=== PATIENT | male | born 1935 | race Caucasian/White ===

== ENCOUNTER 2017-10-27 08:14 | Emergency (ER) | payer MEDICARE, OTHER ==
--- NOTE | 2017-10-27 09:02 | EDM.PDOC ---
ED HPI GENERAL MEDICAL PROBLEM - General Chief Complaint: ENT Problem Stated Complaint: NOSE BLEED Time Seen by Provider: 10/27/17 08:44 Source of Information: Reports: Patient, Family History Limitations: Reports: No Limitations - History of Present Illness INITIAL COMMENTS - FREE TEXT/NARRATIVE: The patient presents with a nosebleed from the right nare. He woke up with it at 3am and it has been coming and going. He is currently on coumadin. He just had his INR checked yesterday. He has never had trouble with nosebleeds before. He has no fever, chills, cough, chest pain, shortness of breath, abdominal pain, nausea and vomiting. He denies trauma to his nose. Onset: Sudden Duration: Hour(s): Severity: Moderate Improves with: Reports: None Worsens with: Reports: None Associated Symptoms: Reports: No Other Symptoms - Related Data Allergies Allergy/AdvReac Type Severity Reaction Status Date / Time No Known Allergies Allergy Verified 10/27/17 08:38 Home Meds: Home Meds Ascorbic Acid [Vitamin C] 500 mg PO QAM 12/02/13 [History] Latanoprost [Xalatan 0.005% Ophth Soln] 1 drop EYERT BEDTIME 12/02/13 [History] Metoprolol Succinate [Toprol XL 50mg] 50 mg PO QPM 12/02/13 [History] Multivitamin [Multi-Vitamin Daily] 1 tab PO QAM 12/02/13 [History] Pravastatin [Pravachol] 20 mg PO QPM 12/02/13 [History] metFORMIN [Glucophage] 1,000 mg PO BID 12/02/13 [History] Aspirin [Ecotrin] 81 mg PO QAM 12/03/13 [History] Fish Oil/Borage/Flax/Om3,6,9#1 [[place] 3-6-9 Complex Softgel] 1 cap PO QAM [History] Folic Acid 1 tab PO QPM 12/03/13 [History] Losartan Potassium [Cozaar] 1 tab PO QAM 12/03/13 [History] Lutein/Minerals/Vit A,C & E [Ocuvite] 1 tab PO QPM 12/03/13 [History] Vitamin E 1 cap PO MOWEFR 12/03/13 [History] Warfarin [Coumadin] 1 mg PO ASDIRECTED 10/27/17 [History] Past Medical History HEENT History: Reports: Impaired Vision Cardiovascular History: Reports: High Cholesterol, Hypertension - Past Surgical History GI Surgical History: Reports: Appendectomy Musculoskeletal Surgical History: Reports: Shoulder Surgery Social & Family History - Tobacco Use Smoking Status *Q: Never Smoker - Caffeine Use Caffeine Use: Reports: None - Recreational Drug Use Recreational Drug Use: No ED ROS ENT - Review of Systems Review Of Systems: See Below Constitutional: Reports: No Symptoms HEENT: Reports: Nosebleed Respiratory: Reports: No Symptoms Cardiovascular: Reports: No Symptoms Endocrine: Reports: No Symptoms GI/Abdominal: Reports: No Symptoms : Reports: No Symptoms Musculoskeletal: Reports: No Symptoms ED EXAM, ENT - Physical Exam Exam: See Below Exam Limited By: No Limitations General Appearance: Alert, No Apparent Distress Ears: Normal External Exam Nose: Active Bleeding (Mild from the septum of the right nare) Head: Atraumatic, Normocephalic Neck: Normal Inspection ED ENT PROCEDURES - Epistaxis Procedure Indication: Epistaxis Recent anticoagulants/antiplatlets: Yes Uncontrolled HTN: No Recent septal/nasal surgery: No Site of bleeding: Right Nare, Anterior Clearing of clots: Patient Blew Nose Ice pack to area: No Chemical cautery: Silver Nitrate Topical Complications: No Course - Vital Signs Last Recorded V/S: Last Vital Signs Temp 97.4 F 10/27/17 08:35 Pulse 75 10/27/17 08:35 Resp 12 10/27/17 08:35 BP 161/95 H 10/27/17 08:35 Pulse Ox 100 10/27/17 08:35 - Re-Assessments/Exams Free Text/Narrative Re-Assessment/Exam: 10/27/17 09:57 He had a little more bleeding so I cauterized some more. I put bacitracin in each nare. I will discharge him home. Departure - Departure Time of Disposition: 10:00 Disposition: Home, Self-Care 01 Condition: Good Clinical Impression: Epistaxis - Discharge Information Referrals: Landry Oneill MD [Primary Care Provider] - Forms: ED Department Discharge Additional Instructions: Take your medication as prescribed. Use vasaline or antibiotic ointment in each nostril to help keep them moist for the next 3 days. Please return if you are worse.
[2017-10-27] MEDS ORDERED: Losartan 25 MG Tab PO ONE (10:29)
== END 2017-10-27 12:40 | disposition home or self-care (01) ==
LOC: JD.ED 08:14
DX: R04.0 Epistaxis (principal); I10 Essential (primary) hypertension; E78.00 Pure hypercholesterolemia, unspecified; Z79.82 Long term (current) use of aspirin; Z79.899 Other long term (current) drug therapy; Z79.01 Long term (current) use of anticoagulants
CPT/HCPCS: 30903; 99283; A9270; 30901

== ENCOUNTER 2020-03-19 16:27 | Emergency (ER) | payer MEDICARE, OTHER ==
--- NOTE | 2020-03-19 17:07 | EDM.PDOC ---
ED HPI GENERAL MEDICAL PROBLEM - General Chief Complaint: Laceration Stated Complaint: HEAD LAC Time Seen by Provider: 03/19/20 16:43 Source of Information: Reports: Patient, RN Notes Reviewed History Limitations: Reports: No Limitations - History of Present Illness INITIAL COMMENTS - FREE TEXT/NARRATIVE: Patient is an 85-year-old male who presents to the ED for the evaluation of his head laceration. Patient notes that around 11 AM this morning, he was putting things away in his garage, when he ended up striking the crown of his head on a shelf, he states he does this every year, but this was the first time he had a hard enough to cause a laceration. He notes he is on Coumadin it did bleed quite a bit initially, but has stopped bleeding at this time. He did not have any loss of consciousness, no headache, blurred vision double vision, no dizziness or lightheadedness. He did have his pro time checked yesterday, and it was 1.8. This laceration is roughly 3 cm in length, and fairly linear. There is not a lot of bleeding noted around the wound. Patient denies any other sick-like symptoms, fever/chills, cough/shortness of breath, nausea/vomiting/diarrhea. Primary care provider is Dr. Oneill. Patient notes he is up-to-date on his vaccinations. - Related Data Allergies Allergy/AdvReac Type Severity Reaction Status Date / Time No Known Allergies Allergy Verified 10/27/17 08:38 Home Meds: Home Meds Ascorbic Acid [Vitamin C] 500 mg PO QAM 12/02/13 [History] Latanoprost [Xalatan 0.005% Ophth Soln] 1 drop EYERT BEDTIME 12/02/13 [History] Metoprolol Succinate [Toprol XL 50mg] 50 mg PO QPM 12/02/13 [History] Multivitamin [Multi-Vitamin Daily] 1 tab PO QAM 12/02/13 [History] Pravastatin [Pravachol] 20 mg PO QPM 12/02/13 [History] metFORMIN [Glucophage] 1,000 mg PO BID 12/02/13 [History] Aspirin [Ecotrin EC] 81 mg PO QAM 12/03/13 [History] Fish Oil/Borage/Flax/Om3,6,9 1 [[place] 3-6-9 Complex Softgel] 1 cap PO QAM 12/03/13 [History] Folic Acid 1 tab PO QPM 12/03/13 [History] Losartan Potassium [Cozaar] 1 tab PO QAM 12/03/13 [History] Lutein/Minerals/Vit A,C & E [Ocuvite] 1 tab PO QPM 12/03/13 [History] Vitamin E 1 cap PO MOWEFR 12/03/13 [History] Warfarin [Coumadin] 1 mg PO ASDIRECTED 10/27/17 [History] cephALEXin [Keflex] 500 mg PO Q8H #21 cap 10/27/17 [Rx] Past Medical History HEENT History: Reports: Impaired Vision Cardiovascular History: Reports: High Cholesterol, Hypertension - Past Surgical History GI Surgical History: Reports: Appendectomy Musculoskeletal Surgical History: Reports: Shoulder Surgery Social & Family History - Tobacco Use Tobacco Use Status *Q: Never Tobacco User - Caffeine Use Caffeine Use: Reports: Coffee, Soda, Tea - Recreational Drug Use Recreational Drug Use: No ED ROS GENERAL - Review of Systems Review Of Systems: Comprehensive ROS is negative, except as noted in HPI. ED EXAM, SKIN/RASH Exam: See Below Exam Limited By: No Limitations General Appearance: Alert, WD/WN, No Apparent Distress Eye Exam: Bilateral Eye: EOMI, Normal Inspection, PERRL Ears: Normal External Exam, Normal TMs Nose: Normal Inspection, Normal Mucosa, No Blood Head: Normocephalic Neck: Normal Inspection, Supple, Non-Tender, Full Range of Motion Respiratory/Chest: No Respiratory Distress, Lungs Clear, Normal Breath Sounds, No Accessory Muscle Use, Chest Non-Tender Cardiovascular: Normal Peripheral Pulses, Regular Rate, Rhythm, No Murmur Peripheral Pulses: 2+: Radial (L), Radial (R) Neurological: Alert, Oriented, Normal Cognition, No Motor/Sensory Deficits Psychiatric: Normal Affect, Normal Mood Skin: Warm, Dry, Normal Color, No Rash, Wound/Incision (3 cm curvilinear laceration to the patient's crown of his head, bleeding is controlled.) ED SKIN PROCEDURES - Laceration/Wound Repair [place] Head Appearance: Superficial, Clean Distal NVT: Neuro & Vascular Intact, No Tendon Injury Skin Prep: Chlorhexidine (Hibiciens), Saline Exploration/Debridement/Repair: Wound Explored, In a Bloodless Field, Explored to Base, No Foreign Material Found Closed with: Dermabond Lac/Wound length In cm: 3 Sterile Dressing Applied: Nurse Tetanus Status Addressed: Yes Complications: No Course - Vital Signs Last Recorded V/S: Last Vital Signs Temp 97.0 F 03/19/20 16:41 Pulse 63 03/19/20 16:41 Resp 20 03/19/20 16:41 BP 154/74 H 03/19/20 16:41 Pulse Ox 98 03/19/20 16:41 Departure - Departure Time of Disposition: 17:06 Disposition: Home, Self-Care 01 Condition: Good Clinical Impression: Laceration of head Qualifiers: Encounter type: initial encounter Location of open wound of head: scalp Foreign body presence: without foreign body Qualified Code(s): S01.01XA - Laceration without foreign body of scalp, initial encounter - Discharge Information *PRESCRIPTION DRUG MONITORING PROGRAM REVIEWED*: No *COPY OF PRESCRIPTION DRUG MONITORING REPORT IN PATIENT RAMAN: No Instructions: Sutures, [place], or Adhesive Wound Closure, [id number] Referrals: Landry Oneill MD [Primary Care Provider] - Additional Instructions: You have been evaluated in the ED for your laceration. Your wound was repaired with Dermabond, which is a's medical grade skin adhesive. This will stay in place for the next few days, and will wear itself off. This should provide enough time for the wound to heal appropriately. Please keep this area clean and dry, you may cleanse with regular soap and water. No vigorous scrubbing. Please try to avoid submerging the affected area in water for prolonged periods of time until the sutures are removed. Watch out for signs of infection like increased redness, swelling, pain at the laceration site, or if you should develop any fevers or chills. Please return to ED if your symptoms change or worsen. Sepsis Event Note (ED) - Evaluation Sepsis Screening Result: No Definite Risk - Focused Exam Vital Signs: Vital Signs Temp Pulse Resp BP Pulse Ox 03/19/20 16:41 97.0 F 63 20 154/74 H 98
== END 2020-03-19 17:15 | disposition home or self-care (01) ==
LOC: JD.ED 16:27
DX: S01.01XA Laceration without foreign body of scalp, initial encounter (principal); E78.00 Pure hypercholesterolemia, unspecified; I10 Essential (primary) hypertension; Z79.82 Long term (current) use of aspirin; Z79.84 Long term (current) use of oral hypoglycemic drugs; Z79.899 Other long term (current) drug therapy; W22.8XXA Striking against or struck by other objects, initial encounter
CPT/HCPCS: 12002; 99282; 99282-25

== ENCOUNTER 2020-12-13 11:05 | Emergency (ER) | payer MEDICARE, OTHER ==
[2020-12-13] MEDS ORDERED: Diphtheria,Pertussis(Acell),Tetanus Vaccine 0.5 ML Syringe IM ONE (11:32)
[2020-12-13] MEDS ORDERED: Amoxicillin/Clavulanate K 875-125 MG Tab PO ONE (12:53)
--- NOTE | 2020-12-13 13:09 | EDM.PDOC ---
ED HPI GENERAL MEDICAL PROBLEM - General Chief Complaint: Laceration Stated Complaint: LT PINKY LAC Time Seen by Provider: 12/13/20 11:27 Source of Information: Reports: Patient, RN Notes Reviewed History Limitations: Reports: No Limitations - History of Present Illness INITIAL COMMENTS - FREE TEXT/NARRATIVE: Patient is an 85-year-old male presenting to the emergency department with complaints of laceration to his left fifth finger. Reports on Sunday that he drug his hand across sawblade causing the injury. He has been applying pressure dressing and washing it at home. He is not sure when his last tetanus vaccination was. Patient is on Coumadin. He last had his INR checked a little bit less than a month ago and had his dose of Coumadin decreased. - Related Data Allergies Allergy/AdvReac Type Severity Reaction Status Date / Time No Known Allergies Allergy Verified 12/13/20 11:25 Home Meds: Home Meds Latanoprost [Xalatan 0.005% Ophth Soln] 1 drop EYERT BEDTIME 12/02/13 [History] Metoprolol Succinate [Toprol XL 50mg] 50 mg PO DAILY 12/02/13 [History] metFORMIN [Glucophage] 500 mg PO BID 12/02/13 [History] Aspirin [Ecotrin EC] 81 mg PO QAM 12/03/13 [History] Folic Acid 400 mg PO QPM 12/03/13 [History] Losartan Potassium [Cozaar] 1 tab PO QAM 12/03/13 [History] Lutein/Minerals/Vit A,C & E [Ocuvite] 1 tab PO BID 12/03/13 [History] Warfarin [Coumadin] 5 mg PO ASDIRECTED 10/27/17 [History] Alogliptin Benzoate [Alogliptin] 12.5 mg PO BEDTIME 12/13/20 [History] Amiodarone [Cordarone] 200 mg PO DAILY 12/13/20 [History] Amoxicillin/Clavulanate K [Augmentin 875-125 MG] 1 tab PO BID 5 Days #9 tablet 12/13/20 [Rx] Levothyroxine 25 mcg PO ACBREAKFAST 12/13/20 [History] Multivit-Min/Folic/Vit K/Lycop [Men's Multivitamin Tablet] 1 each PO BID 12/13/20 [History] Rosuvastatin Calcium 20 mg PO BEDTIME 12/13/20 [History] glipiZIDE [Glucotrol] 5 mg PO DAILY 12/13/20 [History] Past Medical History HEENT History: Reports: Impaired Vision Cardiovascular History: Reports: High Cholesterol, Hypertension, Pacemaker Endocrine/Metabolic History: Reports: Diabetes, Type II Hematologic History: Reports: Anticoagulation Therapy - Past Surgical History Cardiovascular Surgical History: Reports: Pacer GI Surgical History: Reports: Appendectomy Musculoskeletal Surgical History: Reports: Shoulder Surgery Social & Family History - Tobacco Use Tobacco Use Status *Q: Never Tobacco User - Caffeine Use Caffeine Use: Reports: None - Recreational Drug Use Recreational Drug Use: No ED ROS GENERAL - Review of Systems Review Of Systems: Comprehensive ROS is negative, except as noted in HPI. ED EXAM, SKIN/RASH Exam: See Below Exam Limited By: No Limitations General Appearance: Alert, WD/WN, No Apparent Distress Respiratory/Chest: No Respiratory Distress, Lungs Clear, Normal Breath Sounds, No Accessory Muscle Use, Chest Non-Tender Cardiovascular: Normal Peripheral Pulses, Regular Rate, Rhythm, No Edema, No Gallop, No JVD, No Murmur, No Rub Extremities: Other (3 cm a 1 cm skin avulsion of the volar aspect of the left fifth finger. Moderate amount of active bleeding. No redness, warmth, or swelling. Patient has full range of motion to flexion and extension.) Neurological: Alert, Oriented, CN II-XII Intact, Normal Cognition, Normal Gait, Normal Reflexes, No Motor/Sensory Deficits Psychiatric: Normal Affect, Normal Mood Course - Vital Signs Last Recorded V/S: Last Vital Signs Temp 96.8 F L 12/13/20 11:22 Pulse 61 12/13/20 11:22 Resp 16 12/13/20 11:22 BP 163/90 H 12/13/20 11:22 Pulse Ox 98 12/13/20 11:22 - Orders/Labs/Meds Orders: Active Orders 24 hr Category Date Time Status Vaccines to be Administered [RC] PER UNIT ROUTINE Care 12/13/20 11:32 Active Fingers Fifth Digit Lt F4 [CR] Stat Exams 12/13/20 11:40 Taken Labs: Laboratory Tests 12/13/20 12/13/20 12/13/20 Range/Units 11:45 11:45 11:45 WBC 9.19 H (4.23-9.07) K/mm3 RBC 4.20 L (4.63-6.08) M/mm3 Hgb 13.2 L (13.7-17.5) gm/dl Hct 40.8 (40.1-51.0) % MCV 97.1 H (79.0-92.2) fl MCH 31.4 (25.7-32.2) pg MCHC 32.4 (32.2-35.5) g/dl RDW Std Deviation 46.9 H (35.1-43.9) fL Plt Count 171 (163-337) K/mm3 MPV 11.6 (9.4-12.3) fl Neut % (Auto) 64.4 (34.0-67.9) % Lymph % (Auto) 18.1 L (21.8-53.1) % [place] % (Auto) 14.5 H (5.3-12.2) % Eos % (Auto) 2.3 (0.8-7.0) Baso % (Auto) 0.5 (0.1-1.2) % Neut # (Auto) 5.92 H (1.78-5.38) K/mm3 Lymph # (Auto) 1.66 (1.32-3.57) K/mm3 [place] # (Auto) 1.33 H (0.30-0.82) K/mm3 Eos # (Auto) 0.21 (0.04-0.54) K/mm3 Baso # (Auto) 0.05 (0.01-0.08) K/mm3 PT 23.5 H (9.7-12.0) SECONDS INR 2.23 Sodium 147 H (136-145) mEq/L Potassium 4.5 (3.5-5.1) mEq/L Chloride 110 H (98-107) mEq/L Carbon Dioxide 29 (21-32) mEq/L Anion Gap 12.5 (5-15) BUN 24 H (7-18) mg/dL Creatinine 1.6 H (0.7-1.3) mg/dL Est Cr Clr Drug Dosing 37.26 mL/min Estimated GFR (MDRD) 41 (>60) mL/min BUN/Creatinine Ratio 15.0 (14-18) Glucose 125 H (70-99) mg/dL Calcium 9.0 (8.5-10.1) mg/dL Total Bilirubin 0.5 (0.2-1.0) mg/dL AST 36 (15-37) U/L ALT 46 (16-63) U/L Alkaline Phosphatase 46 (46-116) U/L Total Protein 6.8 (6.4-8.2) g/dl Albumin 3.6 (3.4-5.0) g/dl Globulin 3.2 gm/dL Albumin/Globulin Ratio 1.1 (1-2) Meds: Medications Discontinued Medications Generic Name Dose Route Start Last Admin Trade Name Ángel PRN Reason Stop Dose Admin Diphtheria/Tetanus/Acell Pertussis 0.5 ml 12/13/20 11:32 12/13/20 11:44 Diphtheria,Pertussis(Acell),Tetanus Vaccine 0.5 Ml Syringe IM 12/13/20 11:33 0.5 ml .ONCE ONE Administration - Re-Assessments/Exams Free Text/Narrative Re-Assessment/Exam: Is an 85-year-old male presenting to the emergency part with complaints of laceration to his left fifth finger. On exam, he does have an extensive 3 cm x 1 cm skin avulsion to the volar aspect of the left fifth finger. There is a moderate amount of bleeding as patient is on Coumadin. He is diabetic. He does not know when his last tetanus vaccination was. Patient is holding pressure on the area with sterile gauze. I have ordered Tdap and an x-ray of the left fifth finger. I will be in [facility] as patient may need grafting due to the extent of the injury. 12/13/20 12:51 X-ray of the left fifth ring shows no bony abnormalities. [facility] They will be contacting him with an appointment time. Quick clot dressing was applied to the finger and it was wrapped in gauze and [place]. Bleeding has stopped. Patient will be started on Augmentin for infection prophylaxis. Advised him to keep this dressing in place until he is seen [facility] which hopefully be tomorrow or the next day. Discharge instructions as documented. Departure - Departure Time of Disposition: 12:52 Disposition: Home, Self-Care 01 Condition: Good Clinical Impression: Skin avulsion - Discharge Information *PRESCRIPTION DRUG MONITORING PROGRAM REVIEWED*: No *COPY OF PRESCRIPTION DRUG MONITORING REPORT IN PATIENT RAMAN: No Prescriptions: Amoxicillin/Clavulanate K [Augmentin 875-125 MG] 1 tab PO BID 5 Days #9 tablet Referrals: Landry Oneill MD [Primary Care Provider] - Additional Instructions: You were seen in the emergency department today for evaluation of a large laceration to your left pinky finger. While in the ER, you received your tetanus vaccination as well as antibiotic. Your finger has been wrapped. You have been referred to a [facility] [place]. They will be in contact with you to give you an appointment time which should be either tomorrow or the next day. Leave the dressing on your finger in place until you are seen by them. Take your antibiotics as prescribed to prevent infection. Return to ER for any or worsening symptoms of concern. Sepsis Event Note (ED) - Evaluation Sepsis Screening Result: No Definite Risk - Focused Exam Vital Signs: Vital Signs Temp Pulse Resp BP Pulse Ox 12/13/20 11:22 96.8 F L 61 16 163/90 H 98 - My Orders Last 24 Hours: My Active Orders 12/13/20 11:32 Vaccines to be Administered [RC] PER UNIT ROUTINE 12/13/20 11:40 Fingers Fifth Digit Lt F4 [CR] Stat - Assessment/Plan Last 24 Hours: My Active Orders 12/13/20 11:32 Vaccines to be Administered [RC] PER UNIT ROUTINE 12/13/20 11:40 Fingers Fifth Digit Lt F4 [CR] Stat
--- NOTE | 2020-12-13 13:10 | CR ---
Left fifth finger: 3 views of the left fifth finger were obtained. Comparison: No prior finger or hand studies are available. Mild soft tissue injury is seen. No acute fracture, dislocation or other bony abnormality is seen. Impression: 1. Mild soft tissue injury. 2. No acute osseous abnormality is appreciated. Diagnostic code #2
== END 2020-12-13 13:25 | disposition home or self-care (01) ==
LOC: JD.ED 11:05
DX: S61.207A Unspecified open wound of left little finger without damage to nail, initial encounter (principal); I10 Essential (primary) hypertension; E78.00 Pure hypercholesterolemia, unspecified; E11.9 Type 2 diabetes mellitus without complications; Z79.01 Long term (current) use of anticoagulants; Z79.899 Other long term (current) drug therapy; Z79.82 Long term (current) use of aspirin; Z79.84 Long term (current) use of oral hypoglycemic drugs; Z23 Encounter for immunization; W27.0XXA Contact with workbench tool, initial encounter
CPT/HCPCS: 36415; 73140; 80053; 85025; 85610; 90471; 90715; 99283; A9270